=== PATIENT | male | born 1980 | race Caucasian/White ===

== ENCOUNTER 2018-04-12 10:37 | Emergency (ER) | payer OTHER ==
[2018-04-12 10:51] VITALS: BP 147/93; PULSE 86; TEMP 98.2; BMI 31.1
[2018-04-12] MEDS ORDERED: DIPHTH,PERTUSS(ACELL),TET 0.5 ML DISP.SYRIN IM ONE ×2 (11:47→11:52)
[2018-04-12] MEDS ORDERED: CLINDAMYCIN 600MG PREMIX IVPB 600 MG/50 ML BAG IVPB ONE (11:47)
--- NOTE | 2018-04-12 11:48 | PDOC ---
History of Present Illness - General Chief Complaint: Abscess Boil Stated Complaint: CYCTS ON LEFT SIDE OF THE FACE Time Seen by Provider: 04/12/18 11:16 History Source: Patient Exam Limitations: No Limitations - History of Present Illness Initial Comments: 04/12/18 11:49 Patient here for swelling, pain, and infection to the left side of his cheek. Thinks on Thursday had an ingrown here and developed a small pimple that has progressively grown. Denies fever but states left jaw/cheek is painful. States had a small amount of drainage from the inferior aspect of the site. Timing/Duration: reports: getting worse Severity: Yes: moderate Location: reports: face Associated Symptoms: denies: fever, headache, numbness Past History - Travel Traveled outside of the country in the last 30 days: No Close contact w/someone who was outside of country & ill: No - Past Medical History Allergies/Adverse Reactions: Allergies Allergy/AdvReac Type Severity Reaction Status Date / Time No Known Allergies Allergy Verified 04/12/18 10:48 Home Medications: Ambulatory Orders Clindamycin HCl 300 mg PO Q8H #21 capsule 04/12/18 COPD: No - Immunization History Immunization Up to Date: Yes - Suicide/Smoking/Psychosocial Hx Smoking History: Never smoked Have you smoked in the past 12 months: No Number of Cigarettes Smoked Daily: 0 Cigars Per Day: 0 Hx Alcohol Use: No Drug/Substance Use Hx: No Review of Systems - Review of Systems Able to Perform ROS?: Yes Is the patient limited Kiswahili proficient: Yes Constitutional: Yes: Symptoms Reported, See HPI, Malaise. No: Fever HEENTM: No: Symptoms Reported Respiratory: No: Symptoms reported Integumentary: Yes: Symptoms Reported, See HPI, Erythema, Lesions Neurological: No: Symptoms reported All Other Systems: Reviewed and Negative *Physical Exam - Vital Signs Last Vital Signs Temp Pulse Resp BP Pulse Ox 98.2 F 86 18 147/93 100 04/12/18 10:48 04/12/18 10:48 04/12/18 10:48 04/12/18 10:48 04/12/18 10:48 - Physical Exam General Appearance: Yes: Nourished, Appropriately Dressed, Apparent Distress, Mild Distress HEENT: positive: SEBASTIEN, Normal ENT Inspection, TMs Normal, Pharynx Normal, Other (erythematous, tender, pointing lesion to left jaw line at mandibular angle. Has pointing central with fluctuance. 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, Fully Oriented, Alert, Normal Mood/ Affect, Normal Response, Motor Strength 5/5 Moderate Sedation - Procedure Monitoring Vital Signs: Procedure Monitoring Vital Signs Temperature 98.2 F 04/12/18 10:48 Pulse Rate 86 04/12/18 10:48 Respiratory Rate 18 04/12/18 10:48 Blood Pressure 147/93 04/12/18 10:48 O2 Sat by Pulse Oximetry (%) 100 04/12/18 10:48 Procedures - Incision and Drainage I&D Site: Left: Other (lateral face ) Betadine cleansed: Yes Anesthesia: 1% Lidocaine Blade Size: 11 Iodinated Packin/4 in Complications: none Dressing: Yes Progress Note - Progress Note Progress Note: Infected facial cyst, after discussion with Dr. Tucker who recommended incision and drainage, this abscess was incised and drained, patient tolerated well. Received 600 mg of IV clindamycin initially, tetanus/diphtheria/pertussis booster was updated today. *DC/Admit/Observation/Transfer Diagnosis at time of Disposition: Abscess - Discharge Dispostion Disposition: HOME Condition at time of disposition: Stable Decision to Admit order: No - Prescriptions Prescriptions: Clindamycin HCl 300 mg PO Q8H #21 capsule - Referrals Referrals: Naheed Araya MD [Primary Care Provider] - - Patient Instructions Printed Discharge Instructions: DI for Incision and Drainage of a Skin Abscess Additional Instructions: Rest, keep area elevated. Avoid strenuous activity or exercise until wound is healed Use hot soaks to area to bring more blood to the surface and encourage drainage May change dressings as needed to keep clean - trying to avoid removal of packing for 2 days. If packing needs to be changed, return to emergency department or with your followup physician for wound care and evaluation and repacking as needed If packing needs to be removed, then in 2-3 days, while in the shower remove dressing and quickly pull the packing taken out. ( ASK FOR NIKA ) Allow water from shower to wash area thoroughly for 2-3 minutes, and pat dry upon exit of shower and replace dressing. Change his dressing daily until the wound is completely healed. May use Tylenol or Motrin for mild pain relief Use stronger medications as directed and prescribed Continue all medications as prescribed Followup with private physician in 2-3 days for wound check Return to emergency Department for worsening swelling, pain, redness, fevers as needed - Post Discharge Activity Forms/Work/School Notes: Back to Work
[2018-04-12] MEDS ORDERED: CLINDAMYCIN PHOSPHATE 600 MG/4 ML VIAL ONE (11:52)
== END 2018-04-12 13:41 | disposition home or self-care (01) ==
LOC: JERFT 10:37
PROC: 3E0234Z Introduction of Serum, Toxoid and Vaccine into Muscle, Percutaneous Approach (ICD-10-PCS; principal; 2018-04-12)
PROC: 3E03329 Introduction of Other Anti-infective into Peripheral Vein, Percutaneous Approach (ICD-10-PCS; 2018-04-12)
PROC: 0J910ZZ Drainage of Face Subcutaneous Tissue and Fascia, Open Approach (ICD-10-PCS; 2018-04-12)
DX: L02.01 Cutaneous abscess of face (principal)
CPT/HCPCS: 87070; 87186; 87205; 90715; 99281-25

== ENCOUNTER 2018-04-15 09:46 | Emergency (ER) | payer OTHER ==
[2018-04-15 09:55] VITALS: BP 138/87; PULSE 72; TEMP 98.2; BMI 31.1
--- NOTE | 2018-04-15 10:50 | PDOC ---
Suture Removal/Wound Check HPI - History of Present Illness Chief Complaint: Revisit,Wound Recheck Stated Complaint: FOLLOW UP Time Seen by Provider: 04/15/18 10:10 History Source: Yes: Patient Exam Limitations: Yes: No Limitations Treated at: [facility] ED - Previous ED Treatment Type of procedure performed on last visit: Yes: I&D of Abscess Tetanus Immunization: Yes: Up to Date Antibiotics Prescribed: Yes Past History - Travel Traveled outside of the country in the last 30 days: No Close contact w/someone who was outside of country & ill: No - Past Medical History Allergies/Adverse Reactions: Allergies Allergy/AdvReac Type Severity Reaction Status Date / Time No Known Allergies Allergy Verified 04/12/18 10:48 Home Medications: Ambulatory Orders NK [No Known Home Medication] 04/15/18 COPD: No - Immunization History Immunization Up to Date: Yes - Suicide/Smoking/Psychosocial Hx Smoking History: Unknown if ever smoked Have you smoked in the past 12 months: No Number of Cigarettes Smoked Daily: 0 Cigars Per Day: 0 Hx Alcohol Use: No Drug/Substance Use Hx: No Suture Removal/Wound Check PE - Physical Exam Laceration/Wound Check Symptoms: reports: Discharge (minimal serosanguanous discharge), Improved. denies: Pain, Fever, Redness, Bleeding Current Severity Level: None Maximum Severity Level: None Location of Laceration/Wound: left: Face (cheek) *Review of Systems - Review of Systems Constitutional: No: Chills, Fever, Weakness HEENTM: No: Ear Pain, Ear Discharge Integumentary: Yes: Other (induration). No: Erythema, Flushing, Pruritus Neurological: No: Headache All Other Systems: Reviewed and Negative *Physical Exam - Vital Signs Last Vital Signs Temp Pulse Resp BP Pulse Ox 98.2 F 72 16 138/87 99 04/15/18 09:54 04/15/18 09:54 04/15/18 09:54 04/15/18 09:54 04/15/18 09:54 - Physical Exam General Appearance: Yes: Nourished, Appropriately Dressed. No: Apparent Distress HEENT: positive: EOMI, SEBASTIEN Neck: positive: Trachea midline, Supple. negative: Tender, Rigid, Decreased range of motion, Lymphadenopathy (R) Extremity: positive: Normal Capillary Refill, Normal Inspection Integumentary: positive: Normal Color, Dry, Warm, Other (minimal skin induration around the I&D site measuring approximately 1 cm going superiorly from the incision). negative: Erythema Neurologic: positive: Fully Oriented, Alert, Normal Mood/Affect, Normal Response Moderate Sedation - Procedure Monitoring Vital Signs: Procedure Monitoring Vital Signs Temperature 98.2 F 04/15/18 09:54 Pulse Rate 72 04/15/18 09:54 Respiratory Rate 16 04/15/18 09:54 Blood Pressure 138/87 04/15/18 09:54 O2 Sat by Pulse Oximetry (%) 99 04/15/18 09:54 Medical Decision Making - Medical Decision Making 04/15/18 10:52 Patient is 37-year-old male who presents for a wound check status post I&D on his last visit to his left face. On exam the area from the I&D to the left face has had the swelling decreased significantly. Packing was removed. No cellulitic changes noted. Minimal serosanguineous discharge from the incision site. Overall wound appears to be healing well. Told patient to continue his antibiotics as previously prescribed and to follow- up with his primary care doctor. Return precautions given. I discussed the physical exam findings, ancillary test results and final diagnoses with the patient. I answered all of the patient's questions. The patient was satisfied with the care received and felt comfortable with the discharge plan and treatment plan. The Patient agrees to follow up with the primary care physician/specialist within 24-72 hours. Return precautions were given. *DC/Admit/Observation/Transfer Diagnosis at time of Disposition: Wound check, abscess - Discharge Dispostion Disposition: HOME Condition at time of disposition: Stable Decision to Admit order: No - Referrals Referrals: Naheed Araya MD [Primary Care Provider] - - Patient Instructions Printed Discharge Instructions: DI for Incision and Drainage of a Skin Abscess Additional Instructions: You had your wound checked today and the packing was removed It appears to be healing well The cut will heal from the outside in Continue your antibiotics as previously prescribed Follow up with your primary care doctor in the next 2-3 days Return to the ED for worsening redness around the site, fever, green drainage, or if you have any changes in your symptoms - Post Discharge Activity
== END 2018-04-15 10:56 | disposition home or self-care (01) ==
LOC: JERFT 09:46
DX: Z48.817 Encounter for surgical aftercare following surgery on the skin and subcutaneous tissue (principal); Z48.01 Encounter for change or removal of surgical wound dressing
CPT/HCPCS: 99281-25

== ENCOUNTER 2021-02-17 18:39 | Emergency (ER) | payer OTHER ==
[2021-02-17 19:16] VITALS: BP 142/92; PULSE 104; TEMP 98.4; BMI 29.8
[2021-02-17] MEDS ORDERED: ACETAMINOPHEN 500 MG TABLET (FP) PO ONE (19:47)
[2021-02-17] MEDS ORDERED: ACETAMINOPHEN 500 MG TABLET (FP) ONE (19:54)
== END 2021-02-17 21:19 | disposition home or self-care (01) ==
LOC: JER 18:39 → JERFT 18:39 → JER 21:19
DX: M25.512 Pain in left shoulder (principal)
CPT/HCPCS: 73030-TC-LT-FY; 99284-25